=== PATIENT | male | born 1980 | race Caucasian/White ===

== ENCOUNTER 2018-09-14 18:00 | Emergency (ER) | payer OTHER ==
[~2018-09-14] VITALS: Ht 175.3 cm; Wt 86.4 kg
[2018-09-14 18:01] VITALS: BP 161/90
[2018-09-14] MEDS ORDERED: NAPR-885 PO (18:08)
[2018-09-14] MEDS ORDERED: CYCL10TA PO (18:08)
[2018-09-14] MEDS ORDERED: TRAM50TA2 PO (18:08)
[2018-09-14] MEDS ORDERED: ONDANSETRON 4 MG ORAL DISINTEGRATING TAB (Q0162 PER 1MG) PO ONE (18:45)
[2018-09-14] MEDS ORDERED: PANTOPRAZOLE 40MG TAB (PROTONIX) PO ONE (18:45)
[2018-09-14] MEDS ORDERED: SUCRALFATE 1 GM TAB PO ONE (18:45)
[2018-09-14 19:05] LABS: BASO # 0.1 10^3/uL (0.0-0.2); BASO % 0.4 % (0.0-1.0); EOS % 0.2 % (0.0-3.0); HEMOGLOBIN 16.2 g/dl (13.5-17.5); LYMPH # 1.5 10^3/uL (1.5-4.5); LYMPH % 10.6 % (24.0-44.0); MEAN CORPUSCULAR HEMOGLOBIN 32.3 pg (27.0-33.0); MEAN CORPUSCULAR HGB CONC 34.5 g/dl (32.0-36.5); MEAN CORPUSCULAR VOLUME 93.6 fl (80.0-96.0); MONO # 1.2 10^3/uL (0.0-0.8); MONO % 8.7 % (0.0-5.0); NEUTROPHILS # 11.2 10^3/uL (1.8-7.7); NEUTROPHILS % 79.5 % (36.0-66.0); PLATELET COUNT, AUTOMATED 202 10^3/uL (150-450); RED BLOOD COUNT 5.02 10^6/uL (4.30-6.10); WHITE BLOOD COUNT 14.1 10^3/uL (4.0-10.0)
[2018-09-14 19:16] LABS: INR 0.99; PROTHROMBIN TIME 13.2 SECONDS (12.1-14.4)
[2018-09-14 19:17] LABS: PARTIAL THROMBOPLASTIN TIME 30.6 SECONDS (25.4-37.6)
[2018-09-14 19:38] LABS: INFLUENZA A AMPLIFICATION NEGATIVE (NEGATIVE); INFLUENZA B AMPLIFICATION NEGATIVE (NEGATIVE)
[2018-09-14 19:40] LABS: ALBUMIN 4.3 GM/DL (3.2-5.2); ALT/SGPT 47 U/L (12-78); BILIRUBIN,DIRECT 0.1 MG/DL (0.0-0.2); BILIRUBIN,TOTAL 0.4 MG/DL (0.2-1.0); BLOOD UREA NITROGEN 14 MG/DL (7-18); CALCIUM LEVEL 9.2 MG/DL (8.5-10.1); CARBON DIOXIDE LEVEL 28 MEQ/L (21-32); CHLORIDE LEVEL 98 MEQ/L (98-107); CREATININE FOR GFR 0.91 MG/DL (0.70-1.30); GLOMERULAR FILTRATION RATE > 60.0 (>60); GLUCOSE, FASTING 104 MG/DL (70-100); POTASSIUM SERUM 3.9 MEQ/L (3.5-5.1); SODIUM LEVEL 139 MEQ/L (136-145)
[2018-09-14] MEDS ORDERED: PROT1TAB2 PO (19:58)
[2018-09-14] MEDS ORDERED: CARA1TAB6 PO (19:58)
[2018-09-14] MEDS ORDERED: ONDA4TAB6 PO (19:58)
== END 2018-09-14 20:09 | disposition home or self-care (01) ==
LOC: M ED 18:00
DX: K52.9 Noninfective gastroenteritis and colitis, unspecified (principal)
CPT/HCPCS: 80048; 80076; 85025; 85610; 85730; 86850; 86900; 86901; 87502; 99282; Q0162

== ENCOUNTER 2024-05-27 16:29 | Emergency (ER) | payer OTHER ==
[~2024-05-27] VITALS: Ht 175.3 cm; Wt 89.7 kg
[~2024-05-27 16:29] MED LIST: CARA1TAB6 PO; CYCL-707 PO; NAPR-885 PO; ONDA-282 PO; PROT1TAB2 PO; TRAM50TA2 PO
[2024-05-27 20:54] LABS: BASO # 0.1 10^3/uL (0.0-0.2); BASO % 0.5 % (0.0-1.0); EOS # 0.2 10^3/uL (0.0-0.5); EOS % 1.2 % (0.0-3.0); HEMATOCRIT 44.3 % (42.0-52.0); HEMOGLOBIN 15.2 g/dl (13.5-17.5); LYMPH # 3.3 10^3/uL (1.5-5.0); LYMPH % 25.7 % (24.0-44.0); MEAN CORPUSCULAR HEMOGLOBIN 34.4 pg (27.0-33.0); MEAN CORPUSCULAR HGB CONC 34.3 g/dl (32.0-36.5); MEAN CORPUSCULAR VOLUME 100.2 fl (80.0-96.0); MONO # 1.4 10^3/uL (0.0-0.8); MONO % 11.2 % (2.0-8.0); NEUTROPHILS # 7.7 10^3/uL (1.5-8.5); NEUTROPHILS % 60.7 % (36.0-66.0); PLATELET COUNT, AUTOMATED 185 10^3/uL (150-450); RED BLOOD COUNT 4.42 10^6/uL (4.30-6.10); WHITE BLOOD COUNT 12.6 10^3/uL (4.0-10.0)
[2024-05-27 21:07] LABS: INR 0.85; PARTIAL THROMBOPLASTIN TIME 24.5 SECONDS (24.8-34.2)
[2024-05-27] MEDS ORDERED: ANUS25SU PR (21:36)
[2024-05-27 21:41] LABS: BLOOD UREA NITROGEN 18 MG/DL (9-23); CARBON DIOXIDE LEVEL 28 MMOL/L (20-31); CHLORIDE LEVEL 100 MMOL/L (98-107); CREATININE FOR GFR 0.73 MG/DL (0.70-1.30); GLOMERULAR FILTRATION RATE > 60.0 (>60); GLUCOSE, FASTING 87 MG/DL (60-100); POTASSIUM SERUM 3.7 MMOL/L (3.5-5.1); SODIUM LEVEL 139 MMOL/L (136-145)
[2024-05-27 21:44] VITALS: BP 151/103; TEMP 98.8; O2SAT 99
== END 2024-05-27 21:44 | disposition home or self-care (01) ==
LOC: M ED 16:29
DX: K92.2 Gastrointestinal hemorrhage, unspecified (principal); M54.50 Low back pain, unspecified; F17.200 Nicotine dependence, unspecified, uncomplicated; Z79.899 Other long term (current) drug therapy

== ENCOUNTER 2024-08-18 08:26 | Day surgery (SDC) | payer OTHER ==
[~2024-08-18] VITALS: Ht 175.3 cm; Wt 84.6 kg
[~2024-08-18 08:26] MED LIST changes: +ANUS25SU PR; +MAGN400C2 PO; +THERTAB52 PO
[2024-08-18] MEDS ORDERED: LIDOCAINE 2% 100MG/5ML SDV (FOR ANES.) As Ordered ONE (09:35)
[2024-08-18] MEDS ORDERED: propofoL 200 MG/20 ML VIAL As Ordered ONE (09:35)
[2024-08-18 10:00] VITALS: TEMP 97.5
[2024-08-18 10:20] VITALS: BP 141/96; O2SAT 16
== END 2024-08-18 10:30 | disposition home or self-care (01) ==
LOC: M OPP 08:26
PROVIDERS: ATTEND Surgery
DX: D12.3 Benign neoplasm of transverse colon (principal); K57.30 Diverticulosis of large intestine without perforation or abscess without bleeding; K64.8 Other hemorrhoids; K62.5 Hemorrhage of anus and rectum; Z79.899 Other long term (current) drug therapy; F17.210 Nicotine dependence, cigarettes, uncomplicated